=== PATIENT | female | born 1955 | race Native Hawaiian/Other Pacific Islander ===

== ENCOUNTER 2018-11-25 17:50 | Inpatient (IN) | payer OTHER ==
[~2018-11-25] VITALS: Ht 165.1 cm; Wt 67.3 kg
[2018-11-25] MEDS ORDERED: DIAZ2TAB PO (18:25)
[2018-11-25] MEDS ORDERED: TRAMADOL HYDROC50 MG PO (18:25)
[2018-11-25] MEDS ORDERED: BACLOFEN20 MG PO (18:28)
[2018-11-25] MEDS ORDERED: POTASSIUM CHLO20 ME2 PO (18:29)
[2018-11-25] MEDS ORDERED: LORATADINE10 M1 PO (18:30)
[2018-11-25] MEDS ORDERED: CVS ESOMEPRAZOL20 MG PO (18:30)
[2018-11-25] MEDS ORDERED: DOCU100C10 PO (18:30)
[2018-11-25] MEDS ORDERED: CALCIUM600 M1 PO (18:32)
[2018-11-25] MEDS ORDERED: MV-ONE PO (18:33)
[2018-11-25] MEDS ORDERED: MIRALAX3350 N1 PO (18:34)
[2018-11-25 18:35] VITALS: BP 167/78; TEMP 98.3; Ht 165.1 cm; Wt 67.3 kg
[2018-11-25] MEDS ORDERED: [UNRECOGNIZED DRUG - OTHER] NAS (18:35)
[2018-11-25] MEDS ORDERED: CALCITONIN NAS (18:35)
[2018-11-25] MEDS ORDERED: DYMISTA1 SPR NAS (18:36)
[2018-11-25] MEDS ORDERED: ALBUTEROL0.083 % INH (18:37)
[2018-11-25] MEDS ORDERED: PULMICORT0.25 MG/2 INH (18:38)
[2018-11-25 20:00] VITALS: BP 126/63; TEMP 98.1
[2018-11-26] VITALS: BP 120/60; BP 128/70; TEMP 97.9; TEMP 98.7
[2018-11-26 04:00] VITALS: BP 122/63; TEMP 96.9
[2018-11-26 05:28] LABS: PLATELET COUNT 219 K/uL (152-353)
[2018-11-26 05:49] LABS: POTASSIUM 3.9 mmol/L (3.6-5.2); SODIUM 138 mmol/L (136-145)
[2018-11-26 08:00] VITALS: BP 119/82; TEMP 98.4
[2018-11-26 20:00] VITALS: BP 155/62; TEMP 97.4
[2018-11-27] VITALS: BP 128/70; TEMP 98.7
[2018-11-27 04:00] VITALS: BP 128/72; TEMP 98
[2018-11-27 08:00] VITALS: BP 122/72; TEMP 97.3
[2018-11-27 20:00] VITALS: BP 130/60; TEMP 98.2
[2018-11-28 08:00] VITALS: BP 126/87; TEMP 97.8
[2018-11-28 20:00] VITALS: BP 117/63; TEMP 98.5
[2018-11-29 08:00] VITALS: BP 170/82; TEMP 98.5
== END 2018-11-29 11:30 | disposition home or self-care (01) | DRG 93 ==
LOC: MED/SURG 17:50
PROVIDERS: ADMIT Family Medicine
DX: G80.8 Other cerebral palsy (principal); Z51.5 Encounter for palliative care; I10 Essential (primary) hypertension; F41.8 Other specified anxiety disorders; K59.09 Other constipation
CPT/HCPCS: 36415; 80053; 85027; 94640; 94664; 94760